=== PATIENT | female | born 1970 | race Caucasian/White ===

== ENCOUNTER 2023-02-11 17:07 | Emergency (ER) | payer OTHER ==
--- NOTE | 2023-02-11 18:30 | XR ---
EXAMINATION TYPE: XR chest 2V DATE OF EXAM: 02/11/2023 COMPARISON: NONE HISTORY: Chest pain. TECHNIQUE: Frontal and lateral views of the chest are obtained. FINDINGS: There is no focal air space opacity, pleural effusion, or pneumothorax seen. The cardiac silhouette size is within normal limits. The osseous structures are intact. IMPRESSION: No acute process.
[2023-02-11 18:49] LABS: Basophils % (A) 0 %; Eosinophils # (A) 0.2 k/uL (0-0.7); Eosinophils % (A) 3 %; HCT 42.5 % (34.0-46.0); HGB 13.9 gm/dL (11.4-16.0); Lymphocytes # (A) 0.9 k/uL (1.0-4.8); Lymphocytes % (A) 12 %; MCHC 32.8 g/dL (31.0-37.0); MCV 91.6 fL (80.0-100.0); Mean Platelet Volume 8.5; Monocytes # (A) 0.4 k/uL (0-1.0); Monocytes % (A) 5 %; Neutrophils # (A) 6.2 k/uL (1.3-7.7); Neutrophils % (A) 79 %; Platelet Count 199 k/uL (150-450); RBC 4.64 m/uL (3.80-5.40); RDW 13.5 % (11.5-15.5); WBC 7.8 k/uL (3.8-10.6)
[2023-02-11 19:06] LABS: ALT 19 U/L (4-34); AST 26 U/L (14-36); African American GFR (CKD) >90 (>60 ml/min/1.73 sqM); Albumin 4.1 g/dL (3.5-5.0); Alkaline Phosphatase 124 U/L (38-126); Anion Gap 12 mmol/L; Blood Urea Nitrogen 17 mg/dL (7-17); Calcium 9.3 mg/dL (8.4-10.2); Carbon Dioxide 22 mmol/L (22-30); Chloride 106 mmol/L (98-107); Glucose 93 mg/dL (74-99); Non-African American GFR(CKD) >90 (>60 ml/min/1.73 sqM); Potassium 4.3 mmol/L (3.5-5.1); Sodium 140 mmol/L (137-145); Total Bilirubin 0.5 mg/dL (0.2-1.3); Total Protein 7.3 g/dL (6.3-8.2)
[2023-02-11] MEDS ORDERED: ACETAMINOPHEN TAB 500 MG TAB PO STA (19:24)
[2023-02-11] MEDS ORDERED: DEXAMETHASONE SOD PHOSPHATE 10 MG/ML 1 ML VIAL IM STA (19:24)
[2023-02-11] MEDS ORDERED: IBUPROFEN 800 MG TAB PO STA (19:24)
--- NOTE | 2023-02-11 19:24 | ED ---
URI HPI - General Chief Complaint: Upper Respiratory Infection Stated Complaint: cough congestion Time Seen by Provider: 02/11/23 18:28 Source: patient, RN notes reviewed, old records reviewed Mode of arrival: ambulatory Limitations: no limitations - History of Present Illness Initial Comments: This is a 53-year-old female to the emergency department for evaluation of cough congestion bodyaches sore throat generalized pain, cough. Patient was recently at a family gathering so unsure of possible exposure. Patient has no significant travel history. Patient complains of also congestion some ear pain as well. No other complaints MD Complaint: fever, cough, sore throat, rhinorrhea, nasal congestion, sinus pain -: days(s) Severity: moderate Severity scale (1-10): 4 Consistency: constant Improves With: nothing Context: sick contacts Associated Symptoms: chills, myalgias, rhinorrhea, nasal congestion, sore throat Treatments Prior to Arrival: none - Related Data Previous Rx's Medication Instructions Recorded Azithromycin [Zithromax] 500 mg PO DAILY #5 tab 02/11/23 Allergies Allergy/AdvReac Type Severity Reaction Status Date / Time methylprednisolone Allergy Unknown Verified 02/11/23 17:17 [From Medrol] Review of Systems ROS Statement: Those systems with pertinent positive or pertinent negative responses have been documented in the HPI. ROS Other: All systems not noted in ROS Statement are negative. Past Medical History Past Medical History: Asthma History of Any Multi-Drug Resistant Organisms: None Reported Past Surgical History: Cholecystectomy, Orthopedic Surgery Past Psychological History: Anxiety Smoking Status: Vaper Past Alcohol Use History: Rare Past Drug Use History: None Reported General Exam Limitations: no limitations General appearance: alert, in no apparent distress Head exam: Present: atraumatic, normocephalic, normal inspection Eye exam: Present: normal appearance, PERRL, EOMI. Absent: scleral icterus, conjunctival injection, periorbital swelling ENT exam: Present: normal exam, mucous membranes moist Neck exam: Present: normal inspection. Absent: tenderness, meningismus, lymphadenopathy Respiratory exam: Present: normal lung sounds bilaterally. Absent: respiratory distress, wheezes, rales, rhonchi, stridor Cardiovascular Exam: Present: regular rate, normal rhythm, normal heart sounds. Absent: systolic murmur, diastolic murmur, rubs, gallop, clicks GI/Abdominal exam: Present: soft, normal bowel sounds. Absent: distended, tenderness, guarding, rebound, rigid Extremities exam: Present: normal inspection, full ROM, normal capillary refill. Absent: tenderness, pedal edema, joint swelling, calf tenderness Back exam: Present: normal inspection Neurological exam: Present: alert, oriented X3, CN II-XII intact Psychiatric exam: Present: normal affect, normal mood Skin exam: Present: warm, dry, intact, normal color. Absent: rash Course Vital Signs 02/11/23 02/11/23 17:14 20:21 Temperature 98.6 F 98.0 F Pulse Rate 85 79 Respiratory 16 18 Rate Blood Pressure 161/97 165/83 O2 Sat by Pulse 98 98 Oximetry - Reevaluation(s) Reevaluation #1: 02/11/23 19:24 Medical records reviewed Reevaluation #2: Since symptoms continue to improve Reevaluation #3: Patient informed results questions answered Reevaluation #4: 02/11/23 19:24 Was pt. sent in by a medical professional or institution (, PA, INTERNATIONAL SPECIALIST, urgent care, hospital, or alf...) When possible be specific @ -no Did you speak to anyone other than the patient for history (EMS, parent, family, police, friend...)? What history was obtained from this source @ -no Did you review nursing and triage notes (agree or disagree)? Why? @ -agree Are old charts reviewed (outside hosp., previous admission, EMS record, old EKG, old radiological studies, urgent care reports/EKG's, alf records)? Report findings @ -yes Differential Diagnosis (chest pain, altered mental status, abdominal pain women, abdominal pain men, vaginal bleeding, weakness, fever, dyspnea, syncope, headache, dizziness, GI bleed, back pain, seizure, CVA, palpatations, mental health, musculoskeletal)? @ -prior EKG interpreted by me (3pts min.). @ -yes X-rays interpreted by me (1pt min.). @ -yes CT interpreted by me (1pt min.). @ -no U/S interpreted by me (1pt. min.). @ -no What testing was considered but not performed or refused? (CT, X-rays, U/S, labs)? Why? @ -none What meds were considered but not given or refused? Why? @ -none Did you discuss the management of the patient with other professionals (professionals i.e. , PA, INTERNATIONAL SPECIALIST, lab, RT, psych nurse, clinical social work aide, living supervisor, teacher, access control officer, outpatient case manager)? Give summary @ -no Was smoking cessation discussed for >3mins.? @ -no Was critical care preformed (if so, how long)? @ -no Were there social determinants of health that impacted care today? How? (Homelessness, low income, unemployed, alcoholism, drug addiction, transportation, low edu. Level, literacy, decrease access to med. care, intermediate, rehab)? @ -none Was there de-escalation of care discussed even if they declined (Discuss DNR or withdrawal of care, Hospice)? DNR status @ -no What co-morbidities impacted this encounter? (DM, HTN, Smoking, COPD, CAD, Cancer, CVA, ARF, Chemo, Hep., AIDS, mental health diagnosis, sleep apnea, morbid obesity)? @ -none Was patient admitted / discharged? Hospital course, mention meds given and route, prescriptions, significant lab abnormalities, going to OR and other pertinent info. @ - 53 female to the emergency department for evaluation of increased cough congestion upper respiratory infection with no acute cause found here in the ER patient feels well can be discharged home Discharge Undiagnosed new problem with uncertain prognosis? @ -no Drug Therapy requiring intensive monitoring for toxicity (Heparin, Nitro, Insulin, Cardizem)? @ -no Were any procedures done? @ -no Diagnosis/symptom? @ -Viral infection Acute, or Chronic, or Acute on Chronic? @ -Acute Uncomplicated (without systemic symptoms) or Complicated (systemic symptoms)? @ -Complicated Side effects of treatment? @ -no Exacerbation, Progression, or Severe Exacerbation? @ -exacerbation Poses a threat to life or bodily function? How? (Chest pain, [place], [place], pneumonia, PE, COPD, DKA, ARF, appy, cholecystitis, CVA, Diverticulitis, Homicidal, Suicidal, threat to staff... and all critical care pts) @ -no Reevaluation #5: Differential Dyspnea: Coronary syndrome, arrhythmia, tamponade, asthma, COPD, pulmonary embolism, pn eumonia, pneumothorax, pulmonary effusion, anaphylaxis, diabetic ketoacidosis, flailed chest, pulmonary contusion, diaphragmatic rupture, anemia, neuromuscular, this is not meant to be an all-inclusive list. Medical Decision Making - Medical Decision Making 53 female to the emergency department for evaluation of increased cough con gestion upper respiratory infection with no acute cause found here in the ER patient feels well can be discharged home - Lab Data Result diagrams: 02/11/23 18:16 02/11/23 18:16 Lab Results 02/11/23 02/11/23 02/11/23 Range/Units 18:16 18:16 18:16 WBC 7.8 (3.8-10.6) k/uL RBC 4.64 (3.80-5.40) m/uL Hgb 13.9 (11.4-16.0) gm/dL Hct 42.5 (34.0-46.0) % MCV 91.6 (80.0-100.0) fL MCH 30.0 (25.0-35.0) pg MCHC 32.8 (31.0-37.0) g/dL RDW 13.5 (11.5-15.5) % Plt Count 199 (150-450) k/uL MPV 8.5 Neutrophils % 79 % Lymphocytes % 12 % Monocytes % 5 % Eosinophils % 3 % Basophils % 0 % Neutrophils # 6.2 (1.3-7.7) k/uL Lymphocytes # 0.9 L (1.0-4.8) k/uL Monocytes # 0.4 (0-1.0) k/uL Eosinophils # 0.2 (0-0.7) k/uL Basophils # 0.0 (0-0.2) k/uL Sodium 140 (137-145) mmol/L Potassium 4.3 (3.5-5.1) mmol/L Chloride 106 (98-107) mmol/L Carbon Dioxide 22 (22-30) mmol/L Anion Gap 12 mmol/L BUN 17 (7-17) mg/dL Creatinine 0.71 (0.52-1.04) mg/dL Est GFR (CKD-EPI)AfAm >90 (>60 ml/min/1.73 sqM) Est GFR (CKD-EPI)NonAf >90 (>60 ml/min/1.73 sqM) Glucose 93 (74-99) mg/dL Calcium 9.3 (8.4-10.2) mg/dL Magnesium 2.0 (1.6-2.3) mg/dL Total Bilirubin 0.5 (0.2-1.3) mg/dL AST 26 (14-36) U/L ALT 19 (4-34) U/L Alkaline Phosphatase 124 (38-126) U/L Troponin I <0.012 (0.000-0.034) ng/mL Total Protein 7.3 (6.3-8.2) g/dL Albumin 4.1 (3.5-5.0) g/dL Influenza Type A (PCR) (Not Detectd) Influenza Type B (PCR) (Not Detectd) RSV (PCR) (Not Detectd) SARS-CoV-2 (PCR) (Not Detectd) 02/11/23 Range/Units 18:16 WBC (3.8-10.6) k/uL RBC (3.80-5.40) m/uL Hgb (11.4-16.0) gm/dL Hct (34.0-46.0) % MCV (80.0-100.0) fL MCH (25.0-35.0) pg MCHC (31.0-37.0) g/dL RDW (11.5-15.5) % Plt Count (150-450) k/uL MPV Neutrophils % % Lymphocytes % % Monocytes % % Eosinophils % % Basophils % % Neutrophils # (1.3-7.7) k/uL Lymphocytes # (1.0-4.8) k/uL Monocytes # (0-1.0) k/uL Eosinophils # (0-0.7) k/uL Basophils # (0-0.2) k/uL Sodium (137-145) mmol/L Potassium (3.5-5.1) mmol/L Chloride (98-107) mmol/L Carbon Dioxide (22-30) mmol/L Anion Gap mmol/L BUN (7-17) mg/dL Creatinine (0.52-1.04) mg/dL Est GFR (CKD-EPI)AfAm (>60 ml/min/1.73 sqM) Est GFR (CKD-EPI)NonAf (>60 ml/min/1.73 sqM) Glucose (74-99) mg/dL Calcium (8.4-10.2) mg/dL Magnesium (1.6-2.3) mg/dL Total Bilirubin (0.2-1.3) mg/dL AST (14-36) U/L ALT (4-34) U/L Alkaline Phosphatase (38-126) U/L Troponin I (0.000-0.034) ng/mL Total Protein (6.3-8.2) g/dL Albumin (3.5-5.0) g/dL Influenza Type A (PCR) Not Detected (Not Detectd) Influenza Type B (PCR) Not Detected (Not Detectd) RSV (PCR) Not Detected (Not Detectd) SARS-CoV-2 (PCR) Not Detected (Not Detectd) - EKG Data -: EKG Interpreted by Me (EKG is sinus 78 CT 148 QRS 94 QTC 391) - Radiology Data Radiology results: report reviewed (Chest x-rays negative for acute disease), image reviewed Disposition Clinical Impression: Acute upper respiratory infection, Viral infection Disposition: HOME SELF-CARE Condition: Good Instructions (If sedation given, give patient instructions): Upper Respiratory Infection (ED) Prescriptions: Azithromycin [Zithromax] 500 mg PO DAILY #5 tab Is patient prescribed a controlled substance at d/c from ED?: No Referrals: Enoch Corral MD [Primary Care Provider] - 1-2 days Time of Disposition: 19:40
[2023-02-11] MEDS ORDERED: AZITHROMYCIN 500 MG TAB PO STA (19:40)
[2023-02-11 20:24] VITALS: BP 165/83; PULSE 79; RESP 18; TEMP 98
== END 2023-02-11 20:22 | disposition home or self-care (01) ==
LOC: EC 17:07
DX: J06.9 Acute upper respiratory infection, unspecified (principal); J45.909 Unspecified asthma, uncomplicated; F17.290 Nicotine dependence, other tobacco product, uncomplicated; Z88.8 Allergy status to other drugs, medicaments and biological substances; Z90.49 Acquired absence of other specified parts of digestive tract; Z20.822 Contact with and (suspected) exposure to COVID-19
CPT/HCPCS: 36415; 93005; 80053; 83735; 84484; 85025; 87636; 71046; 99284; 96372; J1100

== ENCOUNTER 2023-07-14 19:43 | Outpatient (CLI) | payer OTHER ==
--- NOTE | 2023-07-15 11:42 | P.PCN ---
Description of Procedure: POLYSOMNOGRAPHY REPORT PROCEDURE(S)/DATE(S): Polysomnography 07/14/2023 CLINICAL: Patient has been seen in the sleep center for evaluation of obstructive sleep apnea-hypopnea syndrome. Please see my consultation. Sleep study has been done for evaluation of patient breathing during the sleep. PROCEDURE: The standard montage for clinical polysomnography included the electroencephalogram, the electrooculogram, the mentalis surface electromyography and Lead II cardiography. The respiratory battery consisted of measurements of nasal/buccal air flow, pressure transducer measurements from nose, thoracic and/or abdominal effort and intercostal surface electromyography. Video monitoring has been done to check for any parasomnia events. Nocturnal oxyhemoglobin saturations were obtained by finger oximetry. Step-lauren titration with positive airway pressure was utilized to control the respiratory events, if necessary. RESULTS: During the diagnostic sleep study sleep efficiency was extremely short 45.7%. Latency to sleep onset was significantly prolonged to 109.0 min. Sleep architecture showed stage NI was significantly increased to 18.5%, Delta sleep was slightly short 4.1%, REM sleep was practically normal 19.3%. Respiratory channel showed 4 obstructive apneas, 0 mixed apneas, 0 central apneas, 65 hypopneas with lowest oxygen level 76%. Total apnea hypopnea index was 22.9. Heart rate was in the range between 79 and 93, average 88. EMG showed 67.6 periodic limb movements per hour with 1.7 micro-arousals per hour. IMPRESSIONS: 1. Moderate obstructive sleep apnea hypopnea syndrome. 2. Severe periodic limb movements have been documented. Please see other impressions from consultation PLAN: 1. The patient will have PAP titration for correction of respiratory abnormalities during the sleep. 2. Losing weight program. 3. Sleep hygiene with regular time in bed for at least 7-1/2 hours. 4. No driving if feeling sleepiness. 5. Please check iron profile including ferritin level. Low level of iron may increase the risk for periodic limb movements. Thank you very much for allowing me to participate in the management of your patient. Sincerely, Carson Cunha MD, PhD, FAASM. Diplomat of [place] [employer], Sleep Medicine Board by [place] [employer] [facility] [place]
== END 2023-07-15 05:45 | disposition home or self-care (01) ==
LOC: 3 N SLEEP 19:43
PROVIDERS: ATTEND Internal Medicine
DX: G47.33 Obstructive sleep apnea (adult) (pediatric) (principal); G47.61 Periodic limb movement disorder; Z88.1 Allergy status to other antibiotic agents
CPT/HCPCS: 95810

== ENCOUNTER → 2024-02-23 | Outpatient (CLI) | payer OTHER | END | disposition home or self-care (01) | LOC: LABWHC1 13:30 | PROVIDERS: ATTEND Orthopaedic Surgery | DX: Z01.812 Encounter for preprocedural laboratory examination (principal); M17.11 Unilateral primary osteoarthritis, right knee | CPT/HCPCS: 87070 ==

== ENCOUNTER 2024-02-26 06:07 | Observation (INO) | payer OTHER ==
[2024-02-23 09:04] VITALS: BMI 47.0
--- NOTE | 2024-02-25 08:14 | P.HPOR ---
History of Present Illness H&P Date: 02/25/24 Chief Complaint: Right knee pain The patient is a 54-year-old female who presents with progressive right knee pain for the past 3 years worsening over the past 6 months. She notes diffuse pain with any weightbearing activities. She notes the knee feels unstable. She is having nighttime symptoms. She's tried previous medications along with injections without much relief. She had an arthroscopy 3 years ago. She notes daily pain that limits her normal function and activities. Review of Systems Per HPI Past Medical History Past Medical History: Asthma, GERD/Reflux, Hypertension, Osteoarthritis (OA), Skin Disorder, Thyroid Disorder Additional Past Medical History / Comment(s): Varicose veins. Slight Sleep Apnea, no device use. Eczema, has spot on back of head with dry skin. History of Any Multi-Drug Resistant Organisms: None Reported Past Surgical History: Bladder Surgery, Cholecystectomy, Hysterectomy, Orthopedic Surgery Additional Past Surgical History / Comment(s): Neck surgery with metal cage, bladder polyps removed, right knee surgery. Past Anesthesia/Blood Transfusion Reactions: No Reported Reaction Smoking Status: Former smoker, Vaper - Past Family History Father Family Medical History: Cancer Additional Family Medical History / Comment(s): Skin cancer. Brother(s) Family Medical History: Cancer Additional Family Medical History / Comment(s): Throat cancer. Mother Family Medical History: Deep Vein Thrombosis (DVT) Medications and Allergies Home Medications Medication Instructions Recorded Confirmed Type Albuterol Sulfate [Ventolin HFA] 1 puff INHALATION Q4H PRN 02/23/24 02/23/24 History HYDROcodone/APAP 5-325MG [[place] 1 tab PO BID PRN 02/23/24 02/23/24 History 5-325] Ibuprofen 800 mg PO Q8H PRN 02/23/24 02/23/24 History Levothyroxine Sodium [Synthroid] 50 mcg PO QAM 02/23/24 02/23/24 History Metoprolol Succinate [Toprol XL] 50 mg PO QAM 02/23/24 02/23/24 History Sertraline [Zoloft] 100 mg PO QAM 02/23/24 02/23/24 History Allergies Allergy/AdvReac Type Severity Reaction Status Date / Time methylprednisolone Allergy Unknown Verified 02/23/24 08:54 [From Medrol] Physical Examination - Knee right Appearance: effusion Effusion grade: grade 2 Varus alignment in stance: 10 degrees Tenderness with palpation: anterior, medial Pain: throughout ROM Gait: limping ROM: extension: -15 degrees ROM: flexion: 75 degrees Crepitus with motion: Yes Strength: extension: 5/5 Strength: flexion: 5/5 Meniscal tests: medial meniscal tests: positive, medial joint line pain: positive Results The patient is a well-developed well-nourished female approximately 5 foot 7, 3 10 pounds of endomorphic habitus. HEENT exam is nonfocal, neck is supple. She has painless passive motion of the right hip. Straight leg raise is negative. She is tender about the medial joint line of the right knee. Collaterals are stable, Alida was negative, Adrien's elicits medial pain. Her distal neurovascular appears intact in the right lower extremity. - Diagnostic results Knee x-ray: image reviewed (X-rays of the right knee obtained the office show severe medial compartment osteoarthrosis with [id number] changes and subchondral sclerosis. Genu varum deformity is noted.) Assessment and Plan Assessment: Right knee severe tricompartmental osteoarthrosis Obesity Plan: I talked to the patient at length regarding her condition and treatment options. She's been working on weight loss diligently. She is quite symptomatic having pain and mechanical symptoms related to her right knee osteoarthrosis despite conservative measures. After a thorough discussion she opts to proceed with surgery. We'll plan to proceed with right total knee arthroplasty. Risks and benefits were discussed at length in layman's terms. We will institute DVT prophylaxis postoperatively.
[~2024-02-26 06:07] MED LIST: TRANEXAMIC 1,000 MG/100ML-NACL 1,000 MG in SALINE 1 100ML.BAG IVPB PRN
[2024-02-26] MEDS: ACETAMINOPHEN TAB 500 MG TAB PO PRN (06:57)
[2024-02-26] MEDS: MELOXICAM 7.5 MG TAB PO PRN (06:57)
[2024-02-26] MEDS: ONDANSETRON 4 MG/2 ML VIAL IVP ONE (06:58)
[2024-02-26] MEDS: LACTATED RINGERS 1,000 ML IV SCH (06:58)
[2024-02-26] MEDS: DEXAMETHASONE SOD PHOSPHATE 4 MG/ML 1 ML VIAL IVP STA (07:00)
[2024-02-26] MEDS: MIDAZOLAM 2 MG/2 ML VIAL IV PRN (07:16)
--- NOTE | 2024-02-26 07:35 | P.ANPRN ---
Procedure Note - Anesthesia - Nerve Block Performed Right Adductor Canal Infusion Time Out Performed: Yes (0715) Date of Procedure: 02/26/24 Procedure Start Time: :15 Procedure Stop Time: :28 Location of Patient: PreOp Indication: Acute Post-Operative Pain, Requested by Surgeon Sedation Type: Sedate with meaningful contact maintained Preparation: Sterile Prep, Sterile Dressing Position: Supine Catheter: Indwelling Needle Types: Pajunk Needle Gauge: 18 Ultrasound used to visualize needle placement: Yes Ultrasound used to observe medication spread: Yes Injectate: 0.5% Ropivacaine (see comment for volume) (20 ml) Blood Aspirated: No Pain Paresthesia on Injection Noted: No Resistance on Injection: Normal Image Stored and Saved: Yes Events: Uneventful and Well Tolerated
--- NOTE | 2024-02-26 07:37 | P.ANPRN ---
Procedure Note - Anesthesia - Nerve Block Performed Right iPack Single Time Out Performed: Yes (0715) Date of Procedure: 02/26/24 Procedure Start Time: :15 Procedure Stop Time: :28 Location of Patient: PreOp Indication: Acute Post-Operative Pain, Requested by Surgeon Sedation Type: Sedate with meaningful contact maintained Preparation: Sterile Prep, Sterile Dressing Position: Supine Catheter: None Needle Types: Pajunk Needle Gauge: 21 Ultrasound used to visualize needle placement: Yes Ultrasound used to observe medication spread: Yes Injectate: 0.5% Ropivacaine (see comment for volume) (10 ml of PF normal saline mixed with 10 ml of 0.5% ropivacaine ( 20ml )) Blood Aspirated: No Pain Paresthesia on Injection Noted: No Resistance on Injection: Normal Image Stored and Saved: Yes Events: Uneventful and Well Tolerated
[2024-02-26] MEDS ORDERED: LIDOCAINE 1% INJ 10MG/ML (20 ML MDV) ONE (07:38)
[2024-02-26] MEDS ORDERED: ROPIVACAINE 5 MG/ML 30 ML VIAL ONE (07:38)
[2024-02-26] MEDS ORDERED: SODIUM CHLORIDE 0.9% (PF) 10 ML VIAL ONE (07:38)
[2024-02-26] MEDS ORDERED: PROPOFOL 10 MG/ML 20 ML VIAL IV ONE (07:38)
[2024-02-26] MEDS ORDERED: TRANEXAMIC 1,000 MG/100ML-NACL PREMIX BAG ONE (07:38)
[2024-02-26] MEDS ORDERED: MIDAZOLAM 2 MG/2 ML VIAL ONE (07:38)
[2024-02-26] MEDS ORDERED: PHENYLEPHRINE 10 MG/ML VIAL ONE (07:38)
[2024-02-26] MEDS ORDERED: HYDROmorphone (PF) 1 MG/ML ONE (07:38)
[2024-02-26] MEDS ORDERED: fentaNYL (PF) 50 MCG/ML 2 ML AMP ONE (07:38)
[2024-02-26] MEDS: IV FLUID CONTINUATION 1,000 ML IV ONE (07:39)
[2024-02-26] MEDS: ceFAZolin 3 GM in SODIUM CHLORIDE 0.9% 100 ML IVPB PRN (07:41)
[2024-02-26] MEDS: ceFAZolin 1,000 MG in SODIUM CHLORIDE 0.9% 1,000 ML IRRIGATION ONE (08:05)
[2024-02-26] MEDS: LACTATED RINGERS 1,000 ML IV ONE (08:57)
[2024-02-26] MEDS ORDERED: MAGNESIUM HYDROXIDE 2,400 MG/30 ML CUP PO PRN (09:15)
[2024-02-26] MEDS ORDERED: NALOXONE 0.4 MG/ML 1 ML VIAL IV PRN (09:15)
[2024-02-26] MEDS ORDERED: HYDROmorphone 1 MG/ML 1 ML SYRINGE IVP PRN (09:15)
[2024-02-26] MEDS ORDERED: HYDROcodone/APAP 5-325MG 1 EACH TAB PO PRN ×2 (09:15→16:11)
--- NOTE | 2024-02-26 09:46 | P.OP ---
Date of Procedure: 02/26/24 Preoperative Diagnosis: Right knee severe tricompartmental osteoarthrosis Postoperative Diagnosis: Same Procedure(s) Performed: Right total knee arthroplastycementedposterior stabilized Implants: DePuy attune size 6 narrow cemented femoral component, size 5 cemented tibial component with a 14 x 50 mm tibial stem extension, 9 mm articular surface, 35 mm cemented patellar component. This is a posterior stabilized implant. Anesthesia: regional, spinal Surgeon: Wilfred Kang Facilities Operations Technician #1: Castro Stanford Estimated Blood Loss (ml): 100 Pathology: none sent Condition: stable Disposition: PACU Indications for Procedure: The patient is a 54-year-old female who presents with progressive right knee pain secondary to osteoarthrosis despite conservative measures. She is also working diligently on weight loss. A discussion of the risks and benefits of operative intervention versus continued conservative measures was made with the patient. She opted to proceed with surgery. Operative risks include infection, neurovascular injury, development of blood clots, possible instability, fracture, possible component loosening/failure and possible need for subsequent procedures was discussed. Informed consent was obtained. Operative Findings: As below Description of Procedure: The patient was brought to the operating room, and after induction of spinal anesthesia the right lower extremity was prepped and draped in a normal fashion. The tourniquet was inflated to 270 mm marker. A longitudinal incision extending 3 finger breaths above the superior pole of patella extending to the medial aspect the tibial tubercle was then made. The skin and subcutaneous tissues were divided sharply. Electrocautery was used for hemostasis. A medial parapatellar arthrotomy was performed. The medial soft tissues to include the superficial and deep portions of the medial collateral ligament were elevated subperiosteally. The patella was everted. A portion of the retropatellar fat pad was excised sharply. The anterior cruciate ligament was sacrificed. Blunt retractors were placed. A starting hole was made in the distal femur 1 cm anterior to the posterior cruciate ligament origin. An intramedullary femoral guide was then inserted planning on 5 valgus distal cut with 9 mm distal resection. The cutting block was pinned in place. The distal cut was then made. The posterior referencing sizing guide was utilized. I felt size 6 narrow was most appropriate. 3 of external rotation was built into the system and verified off the trans-epicondylar axis and the posterior condyles. The cutting block was pinned in place. The anterior, posterior, and chamfer cuts then made. Bone fragments were removed. The intercondylar guide was placed and the notch cut was made with a sagittal saw. The bone block was removed in one fragment. The trial component was then placed. There is good anterior to posterior and medial to lateral fit. The distal peg holes were drilled. The trial component was removed. Attention was then paid towards preparing the proximal tibia. An extra medullary guide was utilized in line with the tibial shaft and second metatarsal distally. I planned on 2 mm resection from the medial compartment. The cutting block was pinned in place. The proximal tibial cut was then made. The bone was removed in one fragment. The remnants of the medial and lateral menisci were excised at the capsular junction with electrocautery. The tibia sized most appropriately at size 5. The trial femoral and tibial components were placed along with a 9 mm articular surface. I was able to obtain full flexion and extension with internal and external rotation. After several flexion and extension cycles, the tibial rotation was marked with electrocautery line with the medial one third of the tibial tubercle. Attention was then paid towards preparing the patella. A patella reamer was utilized taking stem to 14 mm of bone stock. A good flush cut was made. The patella sized most appropriately 35 mm. The peg holes were drilled. The trial components placed. I had good patellofemoral tracking with no hands technique. The trial components were then removed. The tibia was prepared in the appropriate rotation with appropriate drill and keel punch planning on a 14 x 50 mm stem extension. The posterior osteophytes were removed with a curved osteotome. The flexion and extension gaps were checked and felt to be symmetric at 9 mm. A trial components were then removed. The bony surfaces were prepared with pulsatile lavage and dried. The tibial component was then cemented place was fully seated. Excess cement was removed. The femoral component cemented place and was fully seated. Excess cement was removed. The trial 9 mm art icular surface was placed and the knee was put in full extension. The patella component was cemented place. After the cement had sufficiently hardened, the knee was again taken through a range of motion. Again I was able to obtain full flexion and extension with varus and valgus stress. The trial 9 mm articular surface was removed and the final one inserted. This was fully seated. Care was taken to avoid any soft tissue interposition. Pulsatile lavage was again utilized. The medial parapatellar arthrotomy was closed with #2 Ethibond suture. The tourniquet was deflated with approximately 60 minutes total tourniquet time. Final hemostasis was obtained with the cautery. There was minimal bleeding therefore a deep drain was not placed. The subcutaneous tissues were reapproximated with interrupted 2-0 Vicryl sutures. The skin was reapproximated with 3-0 subcuticular strata fix suture. Skin tape and adhesive was applied. A sterile dressing was applied. The patient was awoken from sedation and transferred to recovery room in good condition. Blood loss was estimated at 100 mL. No complications were incurred. Sponge and needle counts were correct at the end of the case. Castro BARROS assisted during the major components of this case to include exposure, bone resection, implantation, and closure.
[2024-02-26] MEDS: ROPIVACAINE 1,100 MG, SODIUM CHLORIDE 0.9% 500 ML 330 ML, EMPTY PAIN BALL 1 EACH MISCELLANE PRN (10:09)
[2024-02-26] MEDS: ONDANSETRON 4 MG/2 ML VIAL IVP PRN (10:12)
--- NOTE | 2024-02-26 10:21 | XR ---
EXAMINATION TYPE: XR knee limited RT DATE OF EXAM: 02/26/2024 10:12 AM COMPARISON: None. CLINICAL INDICATION: Female, 54 years old with history of Evaluation for Postop abnormality and align ment, TECHNIQUE: XR knee limited RT view(s) obtained. FINDINGS: Tibial and femoral components of the place. No acute fracture or dislocation evident. Postsurgical so ft tissue changes evident. IMPRESSION: 1. No acute fracture post knee replacement [facility], , 02/26/2024 10:18 AM
[2024-02-26] MEDS: HYDROmorphone 0.5 MG/0.5 ML SYRINGE IVP PRN ×2 (11:02→15:29)
[2024-02-26] MEDS: SCOPOLAMINE 1 MG/72 HR PATCH TRANSDERM ONE (13:03)
[2024-02-26] MEDS: HYDROcodone/APAP 7.5-325MG 1 EACH TAB PO PRN (13:13)
[2024-02-26] MEDS: hydrOXYzine pamoate 25 MG CAP PO PRN (13:15)
[2024-02-26] MEDS: ceFAZolin 3 GM in SODIUM CHLORIDE 0.9% 100 ML IVPB SCH (15:30)
[2024-02-26] MEDS ORDERED: HYDROmorphone 2 MG/ML 1 ML SYRINGE IVP PRN (15:38)
[2024-02-26] MEDS: MORPHINE SULFATE 2 MG/ML SYRINGE IVP PRN (16:10)
[2024-02-26] MEDS: IPRATROPIUM-ALBUTEROL 3 ML NEB INHALATION SCH (20:27)
[2024-02-26] MEDS: SENNOSIDES-DOCUSATE SODIUM 1 EACH TAB PO SCH (20:48)
[2024-02-27] MEDS: oxyCODONE-APAP 10-325MG 1 EACH TAB PO PRN (00:05)
[2024-02-27] MEDS: ZOLPIDEM 5 MG TAB PO PRN (00:05)
[2024-02-27] MEDS: LEVOTHYROXINE 50 MCG TAB PO SCH (05:44)
[2024-02-27] MEDS: METOPROLOL SUCCINATE (ER) 50 MG TAB.ER.24H PO SCH (09:11)
[2024-02-27] MEDS: SERTRALINE 100 MG TAB PO SCH (09:11)
[2024-02-27] MEDS: RIVAROXABAN 10 MG TAB PO SCH (09:11)
--- NOTE | 2024-02-27 09:19 | P.PN ---
Subjective Progress Note Date: 02/27/24 Principal diagnosis: Right knee osteoarthritis Patient was seen at bedside this morning lying in the semicomposition with dressing present over right knee. Patient says she is in a lot of pain this morning. Patient states she has been up a couple times to the bathroom under her own power using a walker and she does have a decent mount of pain when bearing weight to the right lower extremity. Patient says she does need a walker for home. Patient says when she does go home she does have family to help her out. Patient says she is looking forward to working with therapy later this morning. She says she has not had a bowel movement yet, however, patient says she has been passing gas. Patient hoping to stay 1 more night in the hospital. Patient denies any other issues at this time. Objective - Vital Signs Vital signs: Vital Signs Temp 98.2 F 02/27/24 02:00 Pulse 82 02/27/24 08:49 Resp 12 02/27/24 02:00 BP 143/85 02/27/24 02:00 Pulse Ox 96 02/27/24 02:00 FiO2 Intake & Output 02/26/24 02/27/24 02/27/24 18:59 06:59 18:59 Intake Total 1301 Output Total 100 Balance 1201 Weight 148.9 kg Intake: IV 1301 Output: Estimated Blood Loss 100 Other: Voiding Method Toilet # Voids 1 - Exam Right knee: Incision is clean, dry, and intact. The exofin fusion tape is in good condi tion. There is minimal soft tissue swelling and ecchymosis surrounding the medial and lateral aspects of the incision. Calf is soft, no tenderness with palpation. Plantar flexion, dorsiflexion, EHL, FHL are intact. Sensory exam to light touch throughout the extremity is intact, dorsal pedis pulses 2+. Assessment and Plan Assessment: 1. Right knee osteoarthritis -Postop day #1 status post right total knee arthroplasty Plan: 1. Right knee osteoarthritis -right total knee arthroplasty was performed yesterday, 02/26/2024. Patient stable bedside this morning. We have added [place] 10/325 mg every 6 hours for pain. Prescription for walker was signed. Case management working on this. Weightbearing as tolerated with walker and assistance as needed. We will plan to keep patient 1 more night for additional therapy and pain control. Plan for discharge home tomorrow versus Thursday. 2. Appreciate medical management 3. Pain management -[place]; Vistaril 4. DVT prophylaxis -Xarelto 5. GI prophylaxis -senna 6. PT/OT -weightbearing as tolerated walker 7. Encourage incentive spirometer use 8. Discharge planning - plan for discharge home tomorrow versus Thursday Time with Patient: Less than 30
--- NOTE | 2024-02-27 09:35 | P.PN ---
Progress Note - Text Progress Note Date: 02/27/24 patient was seen and evaluated at bedside. Status post postoperative day 1 for right side total knee arthroplasty patient had adductor canal catheter for postop pain control. Patient rated pain at rest 4 out of 10 in severity. Patient describes pain is aching, throbbing type on the sides of the knee and back of the knee. Patient started walking with support. With activity patient pain levels are 7-8 out of 10 in severity. With the help of oral pain medications pain levels are tolerable. Patient denied any weakness/ numbness in lower extremities. patient denied any fever, pain over the catheter site. Physical exam: Patient vital signs stable Patient is alert awake oriented 3 responding to all questions appropriately Examination of the catheter site showed dressing intact, no leaking fluid around the catheter, no redness, no tenderness over the catheter insertion area. plan: status post postoperative day 1 for right side total knee arthroplasty with adductor canal catheter for pain control. Patient was discussed to continue the medication at the rate of 8 mL per hour- increasing to 12 mL/h overnight. Continue until the pump is completely empty and instructed the patient how to discontinue the catheter.
[2024-02-27 10:22] LABS: Basophils # (A) 0.02 X 10*3/uL (0.00-0.10); Basophils % (A) 0.2 %; Eosinophils # (A) 0.03 X 10*3/uL (0.04-0.35); Eosinophils % (A) 0.3 %; HCT 29.1 % (37.2-46.3); HGB 9.1 g/dL (12.0-15.0); Lymphocytes # (A) 1.03 X 10*3/uL (0.90-5.00); Lymphocytes % (A) 11.3 %; MCH 28.8 pg (27.0-32.0); MCHC 31.3 g/dL (32.0-37.0); MCV 92.1 FL (80.0-97.0); Mean Platelet Volume 11.4 FL (9.5-12.2); Monocytes # (A) 0.71 X 10*3/uL (0.20-1.00); Monocytes % (A) 7.8 %; NRBC Per 100 WBC 0 X 10*3/uL (0.00-0.01); Neutrophils % (A) 80.1 %; Platelet Count 184 X 10*3/uL (140-440); RBC 3.16 X 10*6/uL (4.10-5.20); RDW 14.6 % (11.5-14.5); WBC 9.12 X 10*3/uL (4.50-10.00)
--- NOTE | 2024-02-27 11:06 | CONS ---
CONSULTATION HISTORY OF PRESENT ILLNESS: The patient is status post knee surgery for medical management consult. Pain she says 20/10. Her pain is uncontrolled. We started her on multiple pain medicines including [place] did not work, Motrin worked a little, Dilaudid did not work. We increased over to oxycodone last night, gave her sleeping pill, sleeping. Her pain is still low 8 to 9/10 and she has severe pain just ambulating. She is going to stay another day to try to wean off pain medications as tolerated. Continue her breathing treatments. She has history of severe asthma, hypothyroid, hypertension, depression. Continue current treatments. Pain control is please see orders that were given in the last 24 hours, consultation with Dr. Enoch Corral. Prognosis guarded. MEDICATIONS: Reviewed. FAMILY HISTORY: Reviewed. SOCIAL HISTORY: Reviewed. REVIEW OF SYSTEMS: Otherwise negative x12. PHYSICAL EXAMINATION: CARDIOVASCULAR: S1, S2. LUNGS: Transmitted upper sounds. GI: Soft. HEMATOLOGIC: Negative Hom[place]. EXTREMITIES: She is unable to move her right knee. VITAL SIGNS: O2 is 96% on room air, blood pressure 143/85, temp 98.2, pulse is 96 to 100, respiratory rate 12 to 18. Continue current treatment. Prognosis guarded. MMODL / IJN: [id number] /
[2024-02-27] MEDS: hydrOXYzine pamoate 25 MG CAP PO SCH (12:01)
[2024-02-27] MEDS: HYDROcodone/APAP 10-325MG 1 EACH TAB PO PRN (13:28)
[2024-02-28] MEDS ORDERED: HYDROcodone/APAP 10-325MG 1 EACH TAB PO PRN (11:48)
--- NOTE | 2024-02-28 12:04 | P.PN ---
Subjective Progress Note Date: 02/28/24 Principal diagnosis: Right knee osteoarthritis Patient was seen at bedside this morning lying in the semirecumbent position with dressing present over right knee. Patient says she is in a lot of pain this morning. She says she did get up with therapy yesterday and took a couple steps into the chair. She says the pain is about the same as it was yesterday. She says she is hoping to talk to case management about the option of going to rehab upon discharge from the hospital. Patient says she does have 12 steps into her home and she thinks this may be difficult for her to do at this time. Patient states she has been up a couple times to the bathroom under her own power using a walker and she does have a decent mount of pain when bearing weight to the right lower extremity. Patient says she is looking forward to working with therapy later this morning. She says she has not had a bowel movement yet, however, patient says she has been passing gas. Patient denies any other issues at this time. Objective - Vital Signs Vital signs: Vital Signs Temp 98.8 F 02/28/24 07:28 Pulse 72 02/28/24 09:02 Resp 20 02/28/24 07:28 BP 135/75 02/28/24 07:28 Pulse Ox 94 L 02/28/24 07:28 FiO2 Intake & Output 02/27/24 02/28/24 02/28/24 18:59 06:59 18:59 Other: Voiding Method Toilet # Voids 3 4 1 - Exam Right knee: Incision is clean, dry, and intact. The exofin fusion tape is in good condition. There is minimal soft tissue swelling and ecchymosis surrounding the medial and lateral aspects of the incision. Calf is soft, no tenderness with palpation. Plantar flexion, dorsiflexion, EHL, FHL are intact. Sensory exam to light touch throughout the extremity is intact, dorsal pedis pulses 2+. - Labs CBC & Chem 7: 02/27/24 04:05 Assessment and Plan Assessment: 1. Right knee osteoarthritis -Postop day #2 status post right total knee arthroplasty Plan: 1. Right knee osteoarthritis -right total knee arthroplasty was performed 02/26/2024. Patient stable bedside this morning. Due to continued pain difficulty with ambulation pain medications have been adjusted. We have added Percocet 7.5mg/325 1-q6h for pain scalle 7-10. Patient says she would like to discuss possibility of going to rehab upon discharge from the hospital due to continued pain and difficulties with ambulation. case management not available in the hospital today. Weightbearing as tolerated with walker and assistance as needed. We will plan to keep patient 1 more night for additional therapy and pain control. Plan for discharge home with health services versus rehab within the next couple days. 2. Appreciate medical management 3. Pain management -[place]; percocet; Vistaril 4. DVT prophylaxis -Xarelto 5. GI prophylaxis -senna 6. PT/OT -weightbearing as tolerated walker 7. Encourage incentive spirometer use 8. Discharge planning - Plan for discharge home with health services versus rehab within the next couple days. Time with Patient: Less than 30
--- NOTE | 2024-02-28 13:45 | PN ---
PROGRESS NOTE SUBJECTIVE: A 54-year-old white female, status post knee surgery. She was in severe pain. We ordered her on Percocet. She is hopefully up and ambulating and hopefully discharge home soon. OBJECTIVE: CARDIOVASCULAR: S1, S2. LUNGS: Clear. GI: Soft. ENDOCRINE: Morbid obesity. She is status post knee surgery day 2. Pain medicine control will be done. Possibly discharge home once her pain stabilizes, but clinically and medically, she appears stable. She is 94% on room air. Blood pressure is 130s over 70s, temperature 98.8, pulse 97, respiratory rate 20. MMODL / IJN: [id number] /
[2024-02-28] MEDS: oxyCODONE-APAP 7.5-325MG 1 EACH TAB PO PRN (16:33)
[2024-02-29 08:16] VITALS: RESP 18
[2024-02-29 08:33] LABS: Basophils # (A) 0.06 X 10*3/uL (0.00-0.10); Basophils % (A) 0.6 %; Eosinophils # (A) 0.16 X 10*3/uL (0.04-0.35); Eosinophils % (A) 1.7 %; HCT 26.3 % (37.2-46.3); HGB 8.3 g/dL (12.0-15.0); Lymphocytes % (A) 11.5 %; MCH 28.7 pg (27.0-32.0); MCHC 31.6 g/dL (32.0-37.0); Mean Platelet Volume 11.8 FL (9.5-12.2); Monocytes # (A) 0.66 X 10*3/uL (0.20-1.00); Monocytes % (A) 6.9 %; NRBC Per 100 WBC 0 X 10*3/uL (0.00-0.01); Neutrophils # (A) 7.51 X 10*3/uL (1.80-7.70); Neutrophils % (A) 78.9 %; Platelet Count 161 X 10*3/uL (140-440); RBC 2.89 X 10*6/uL (4.10-5.20); RDW 14.4 % (11.5-14.5); WBC 9.53 X 10*3/uL (4.50-10.00)
--- NOTE | 2024-02-29 11:11 | P.PN ---
Subjective Progress Note Date: 02/29/24 Principal diagnosis: Right knee osteoarthritis Patient was seen at bedside this morning sitting up in chair with dressing present over right knee. Patient says her pain is a little bit better today. She says she has been trying to perform exercises every hour. She says she did get up with therapy yesterday and took a couple steps into the chair. Patient says she did discuss different rehab options with case folder this morning. Patient says she does have 12 steps into her home and she thinks this may be difficult for her to do at this time. Patient states she has been up a couple times to the bathroom under her own power using a walker and she does have a decent amount of pain when bearing weight to the right lower extremity. Patient says she is looking forward to working with therapy later this morning. She says she has not had a bowel movement yet, however, patient says she has been passing gas. Patient denies any other issues at this time. Objective - Vital Signs Vital signs: Vital Signs Temp 97.8 F 02/29/24 08:00 Pulse 88 02/29/24 09:09 Resp 18 02/29/24 09:07 BP 118/79 02/29/24 08:00 Pulse Ox 90 L 02/29/24 08:00 FiO2 Intake & Output 02/28/24 02/29/24 02/29/24 18:59 06:59 18:59 Other: Voiding Method Toilet Toilet # Voids 1 2 - Exam Right knee: Incision is clean, dry, and intact. The exofin fusion tape is in good condition. There is minimal soft tissue swelling and ecchymosis surrounding the medial and lateral aspects of the incision. Calf is soft, no tenderness with palpation. Plantar flexion, dorsiflexion, EHL, FHL are intact. Sensory exam to light touch throughout the extremity is intact, dorsal pedis pulses 2+. - Labs CBC & Chem 7: 02/29/24 03:11 Labs: Abnormal Lab Results - Last 24 Hours (Table) 02/29/24 Range/Units 03:11 RBC 2.89 L (4.10-5.20) X 10*6/uL Hgb 8.3 L (12.0-15.0) g/dL Hct 26.3 L (37.2-46.3) % MCHC 31.6 L (32.0-37.0) g/dL Assessment and Plan Assessment: 1. Right knee osteoarthritis -Postop day #3 status post right total knee arthroplasty Plan: 1. Right knee osteoarthritis -right total knee arthroplasty was performed 02/26/2024. Patient stable bedside this morning. Case management working on rehab placement Weightbearing as tolerated with walker and assistance as needed. Continue with oral pain medication. Continue with PT/OT daily. Perform exercises every hour while resting in bed and sitting in chair. Plan for discharge to rehab once auth is obtained 2. Appreciate medical management 3. Pain management -[place]; percocet; Vistaril 4. DVT prophylaxis -Xarelto 5. GI prophylaxis -senna 6. PT/OT -weightbearing as tolerated walker 7. Encourage incentive spirometer use 8. Discharge planning - Plan for discharge to rehab once auth is obtained Time with Patient: Less than 30
[2024-02-29 14:33] VITALS: BP 102/67; PULSE 92; TEMP 97.1
--- NOTE | 2024-02-29 15:36 | P.DS ---
Providers Date of admission: 02/29/24 08:46 Expected date of discharge: 02/29/24 Attending physician: Wilfred Kang Consults: 02/26/24 09:15 Consult Physician Routine Consulting Provider: Enoch Corral Reason/Comments: medical management status post right total knee arthroplasty Do you want consulting provider notified?: Yes Primary care physician: Enoch Corral Hospital Course: Date of admission: 02/26/2024 Date of discharge: 02/29/2024 Admission diagnosis: Status post right total knee arthroplasty Discharge diagnosis: Same Attending physician: Dr. Kang Surgical procedures: Right total knee arthroplasty Brief history: Patient is a 54-year-old female with a history of progressive primary right knee osteoarthritis. At this point patient has failed conserv ative treatment measures and has opted to proceed with a elective right total knee arthroplasty. Hospital course: Details of patient's surgery can be found in operative report. Patient tolerated the procedure well and was subsequently transported to orthopedic floor. Patient's orthopeidc and medical care was provided daily. Patient had daily laboratory tests performed for evaluation of overall blood counts. Patient had daily physical therapy to include strengthening range of motion as well as education with walker ambulation. Patient was treated with Xarelto for their postoperative DVT prophylaxis during their inpatient stay. Patient was noted to have a relatively uneventful postoperative course. Patient reported satisfactory pain control with oral pain medications by postoperative d ay 3. Patient showed satisfactory progress with physical therapy. Patient moved steadily through the program and had no difficulty meeting the goals by postoperative day 3. Given patient's otherwise satisfactory course and having met physical therapy goals, plan is to discharge patient subacute rehab on postoperative day 3. Discharge condition/disposition: Patient will be discharged subacute rehab in stable condition. Discharge medications: Instructions are given on resumption of patient's normal daily medications per primary care recommendation, in addition patient will be prescribed Percocet 7.5 mg / 325 mg, senna S, MiraLAX 17 g, Xarelto 10 mg. Discharge instructions: 1. Wound care and infection precautions, keep incision dry and covered while showering, no lotions, creams, moisturizers. No soaking, tubs, pools, hottubs. Do not scrub over the incision. 2. Weight-bear as tolerated with walker / cane until follow-up. 3. Ice and elevate when necessary. Do not exceed 20 minutes per hour with ice pack. 4. Utilize compression sleeve until seen at first follow up appointment. 5. Visiting nursing care. 6. Home physical therapy including home CPM. 7. Pain meds and anticoagulants per prescription. 8. Pain medication has potential to cause constipation. Increase oral fluid and fiber intake. Contact primary care provider if you have not had a bowel movement within 48 hours after discharge 9. No anti-inflammatory medication until discussed at first post operative visit, this including Motrin, Aleve, Mobic, Diclofenac. 10. Follow up in office at 2 weeks postop with Dieter Tan PA-C/Castro Brennan 11. Follow up with your primary care doctor 7-10 days after discharge. 12. Contact [facility] with any questions, . Procedures: Right total knee arthroplasty Patient Condition at Discharge: Good Plan - Discharge Summary Discharge Rx Participant: No New Discharge Prescriptions: New oxyCODONE HCL/ACETAMINOPHEN [Percocet 7.5-325 mg] 1 tab PO Q6HR PRN #28 tab PRN Reason: Pain Rivaroxaban [Xarelto] 10 mg PO DAILY #12 tab polyethylene glycoL 3350 [Miralax] 17 gm PO DAILY PRN #21 packet PRN Reason: Constipation Sennosides/Docusate Sodium [Senna-S 8.6-50 mg Tablet] 2 each PO DAILY PRN #30 tablet PRN Reason: Constipation Discontinued HYDROcodone/APAP 5-325MG [[place] 5-325] 1 tab PO BID PRN PRN Reason: Pain No Action Sertraline [Zoloft] 100 mg PO QAM Metoprolol Succinate [Toprol XL] 50 mg PO QAM Levothyroxine Sodium [Synthroid] 50 mcg PO QAM Ibuprofen 800 mg PO Q8H PRN PRN Reason: Pain Albuterol Sulfate [Ventolin HFA] 1 puff INHALATION Q4H PRN PRN Reason: Shortness Of Breath Discharge Medication List Albuterol Sulfate [Ventolin HFA] 1 puff INHALATION Q4H PRN 02/23/24 [History] Ibuprofen 800 mg PO Q8H PRN 02/23/24 [History] Levothyroxine Sodium [Synthroid] 50 mcg PO QAM 02/23/24 [History] Metoprolol Succinate [Toprol XL] 50 mg PO QAM 02/23/24 [History] Sertraline [Zoloft] 100 mg PO QAM 02/23/24 [History] Rivaroxaban [Xarelto] 10 mg PO DAILY #12 tab 02/29/24 [Rx] Sennosides/Docusate Sodium [Senna-S 8.6-50 mg Tablet] 2 each PO DAILY PRN #30 tablet 02/29/24 [Rx] oxyCODONE HCL/ACETAMINOPHEN [Percocet 7.5-325 mg] 1 tab PO Q6HR PRN #28 tab 02/29/24 [Rx] polyethylene glycoL 3350 [Miralax] 17 gm PO DAILY PRN #21 packet 02/29/24 [Rx] Follow up Appointment(s)/Referral(s): Castro Stanford PAC [PHYSICIAN CONDOMINIUM MANAGER] - 2 Weeks [facility],Equipment [NON-STAFF] - As Needed (*Please call [facility] once home to arrange delivery of the Continuous Passive Motion (CPM) machine. ) [facility] [place], [NON-STAFF] - As Needed Patient Instructions/Handouts: Knee Replacement (GEN) Activity/Diet/Wound Care/Special Instructions: Orthopedic Discharge Instructions: 1. Wound care and infection precautions, keep incision dry and covered while showering, no lotions, creams, moisturizers. No soaking, pools, hot tubs. Do not scrub over incision. 2. Weight-bear as tolerated with walker / cane until follow-up. 3. Ice and elevate when necessary. Do not exceed 20 minutes per hour with ice pack. 4. Utilize compression sleeve until seen at first follow up appointment. 5. Pain meds and anticoagulants per prescription. 6. Pain medication has potential to cause constipation. Increase oral fluid and fiber intake. Contact primary care provider if you have not had a bowel movement within 48 hours after discharge. 7. No anti-inflammatory medication until discussed at first post operative visit, this including Motrin, Aleve, Mobic, Diclofenac. 8. Follow up in office at 2 weeks postop with Dieter Tan PA-C / Castro Stanford PA-C 9. Follow up with your primary care doctor 7-10 days after discharge. 10. Contact [facility] with any questions, . Keep incision clean, dry, intact. While showering, cover fusion tape with Saran wrap. Keep fusion tape on until follow-up appointment in office in 2 weeks. Discharge Disposition: TRANSFER TO SNF/ECF
== END 2024-02-29 17:27 ==
LOC: OR 06:07 → 4SSUR 12:40 → OR 02-29 08:46 → 4SSUR 02-29 08:46
PROVIDERS: ADMIT Orthopaedic Surgery; ATTEND Orthopaedic Surgery
DX: M17.11 Unilateral primary osteoarthritis, right knee (principal); G47.30 Sleep apnea, unspecified; K21.9 Gastro-esophageal reflux disease without esophagitis; J45.909 Unspecified asthma, uncomplicated; I10 Essential (primary) hypertension; E66.9 Obesity, unspecified; Z68.43 Body mass index [BMI] 50.0-59.9, adult; Z79.899 Other long term (current) drug therapy; Z79.890 Hormone replacement therapy; Z88.8 Allergy status to other drugs, medicaments and biological substances
CPT/HCPCS: 27447; 64447; 94640 ×5; 97116; 97161; 97166; 64999; 64448; 85025 ×2; 73560; G0378; C1713 ×2; C1776; C1751; J2250; J1100; J0690 ×2; J2405; J2003; J3010; J2270 ×3; J1171 ×2; J2795; J2704; J2371

== ENCOUNTER 2024-04-11 13:50 | Emergency (ER) | payer MEDICAID, OTHER ==
[2024-04-11 14:09] VITALS: RESP 18
[2024-04-11 14:55] LABS: Basophils # (A) 0.1 k/uL (0-0.2); Basophils % (A) 1 %; Eosinophils # (A) 0.2 k/uL (0-0.7); Eosinophils % (A) 3 %; HGB 12.6 gm/dL (11.4-16.0); Hypochromasia Slight; Lymphocytes # (A) 1.2 k/uL (1.0-4.8); Lymphocytes % (A) 14 %; MCH 29.2 pg (25.0-35.0); MCHC 32.3 g/dL (31.0-37.0); MCV 90.5 fL (80.0-100.0); Mean Platelet Volume 8.2; Monocytes # (A) 0.3 k/uL (0-1.0); Monocytes % (A) 4 %; Neutrophils # (A) 6.3 k/uL (1.3-7.7); Neutrophils % (A) 78 %; Platelet Count 222 k/uL (150-450); RBC 4.31 m/uL (3.80-5.40); RDW 14.1 % (11.5-15.5); WBC 8.2 k/uL (3.8-10.6)
--- NOTE | 2024-04-11 15:06 | ED ---
Lower Extremity Injury HPI - General Chief Complaint: Extremity Injury, Lower Stated Complaint: knee pain Time Seen by Provider: 04/11/24 14:05 Source: patient, RN notes reviewed Mode of arrival: wheelchair Limitations: no limitations - History of Present Illness Initial Comments: This is a 54-year-old female presenting with right knee pain (10/27) x 2 days. Patient had TKR surgery on 02/26/2024 with gradual improvement afterwards, including 2 weeks of physical therapy. States pain started worsening yesterday with associated distal edema and paresthesia and foot. Endorses audible "popping" and worsening pain with weightbearing (01/27). Patient states she recently ran out of her hydrocodone and Percocet. Denies use of blood thinners or history of blood clots. Denies fever, chills, RLE color change, chest pain, dyspnea. MD Complaint: knee injury Onset/Timin -: days(s) Injury: Knee: Right Severity scale (1-10): 7 Improves With: immobilization Worsens With: weight bearing, movement, palpation Treatments Prior to Arrival: other (Hydrocodone, Percocet) - Related Data Home Medications Medication Instructions Recorded Confirmed Ibuprofen 800 mg PO Q8H PRN 02/23/24 02/26/24 Levothyroxine Sodium [Synthroid] 50 mcg PO QAM 02/23/24 02/26/24 Metoprolol Succinate [Toprol XL] 50 mg PO QAM 02/23/24 02/26/24 Sertraline [Zoloft] 100 mg PO QAM 02/23/24 02/26/24 Previous Rx's Medication Instructions Recorded Ipratropium-Albuterol Nebulize 3 ml INHALATION RT-QID each 02/29/24 [Duoneb 0.5 mg-3 mg/3 ml Soln] Rivaroxaban [Xarelto] 10 mg PO DAILY #12 tab 02/29/24 Sennosides-Docusate Sodium 2 each PO HS tab 02/29/24 [Senokot-S] Sennosides/Docusate Sodium 2 each PO DAILY PRN #30 tablet 02/29/24 [Senna-S 8.6-50 mg Tablet] hydrOXYzine pamoate [Vistaril] 25 mg PO Q6HR cap 02/29/24 oxyCODONE HCL/ACETAMINOPHEN 1 tab PO Q6HR PRN #28 tab 02/29/24 [Percocet 7.5-325 mg] polyethylene glycoL 3350 [Miralax] 17 gm PO DAILY PRN #21 packet 02/29/24 Ibuprofen [Motrin] 800 mg PO Q8H PRN #30 tab 04/11/24 Allergies Allergy/AdvReac Type Severity Reaction Status Date / Time methylprednisolone Allergy Unknown Verified 02/26/24 06:31 [From Medrol] Review of Systems ROS Statement: Those systems with pertinent positive or pertinent negative responses have been documented in the HPI. ROS Other: All systems not noted in ROS Statement are negative. Past Medical History Past Medical History: Asthma, GERD/Reflux, Hypertension, Osteoarthritis (OA), Skin Disorder, Thyroid Disorder Additional Past Medical History / Comment(s): Varicose veins. Slight Sleep Apnea, no device use. Eczema, has spot on back of head with dry skin. History of Any Multi-Drug Resistant Organisms: None Reported Past Surgical History: Bladder Surgery, Cholecystectomy, Hysterectomy, Orthopedic Surgery Additional Past Surgical History / Comment(s): Neck surgery with metal cage, bladder polyps removed, right knee surgery. Past Anesthesia/Blood Transfusion Reactions: No Reported Reaction Past Psychological History: Anxiety Smoking Status: Former smoker, Vaper Past Alcohol Use History: Rare Past Drug Use History: None Reported - Past Family History Father Family Medical History: Cancer Additional Family Medical History / Comment(s): Skin cancer. Brother(s) Family Medical History: Cancer Additional Family Medical History / Comment(s): Throat cancer. Mother Family Medical History: Deep Vein Thrombosis (DVT) General Exam Limitations: no limitations General appearance: alert, in no apparent distress Head exam: Present: atraumatic, normocephalic, normal inspection Eye exam: Present: normal appearance, PERRL, EOMI. Absent: scleral icterus, conjunctival injection, periorbital swelling ENT exam: Present: normal exam, mucous membranes moist Neck exam: Present: normal inspection. Absent: tenderness, meningismus, lymphadenopathy Respiratory exam: Present: normal lung sounds bilaterally. Absent: respiratory distress, wheezes, rales, rhonchi, stridor Cardiovascular Exam: Present: regular rate, normal rhythm, normal heart sounds. Absent: systolic murmur, diastolic murmur, rubs, gallop, clicks GI/Abdominal exam: Present: soft, normal bowel sounds. Absent: distended, tenderness, guarding, rebound, rigid Extremities exam: Present: tenderness (Positive diffuse right knee TTP, especially subpatellar and bilateral regions.), normal capillary refill, pedal edema (Pitting edema of RLE up to knee. Posterior tibialis pulse +1), joint swelling (Right subpatellar edema,), other (Surgical incision site appears to have healed well with no obvious indications of infection, discharge, overlying erythema. Negative distal RLE erythema). Absent: calf tenderness Back exam: Present: normal inspection Neurological exam: Present: alert, oriented X3, CN II-XII intact Psychiatric exam: Present: normal affect, normal mood Skin exam: Present: warm, dry, intact, normal color. Absent: rash Course Vital Signs 04/11/24 04/11/24 14:06 16:55 Temperature 98.5 F 98 F Pulse Rate 84 74 Respiratory 18 18 Rate Blood Pressure 141/85 129/79 O2 Sat by Pulse 98 100 Oximetry Medical Decision Making - Medical Decision Making Was pt. sent in by a medical professional or institution (, PA, CHILD SUPPORT INVESTIGATOR, urgent care, hospital, or group home...) When possible be specific @ -[No] Did you speak to anyone other than the patient for history (EMS, parent, family, police, friend...)? What history was obtained from this source @ -[No] Did you review nursing and triage notes (agree or disagree)? Why? @ -[I reviewed and agree with nursing and triage notes] Were old charts reviewed (outside hosp., previous admission, EMS record, old EKG, old radiological studies, urgent care reports/EKG's, group home records)? Report findings @ -[No old charts were reviewed] Differential Diagnosis (chest pain, altered mental status, abdominal pain women, abdominal pain men, vaginal bleeding, weakness, fever, dyspnea, syncope, headache, dizziness, GI bleed, back pain, seizure, CVA, palpatations, mental health, musculoskeletal)? @ -[not applicable] EKG interpreted by me (3pts min.). @ -Not done X-rays interpreted by me (1pt min.). @ -[None done] CT interpreted by me (1pt min.). @ -[None done] U/S interpreted by me (1pt. min.). @ -[None done] What testing was considered but not performed or refused? (CT, X-rays, U/S, labs)? Why? @ -[None] What meds were considered but not given or refused? Why? @ -[None] Did you discuss the management of the patient with other professionals (professionals i.e. , PA, CHILD SUPPORT INVESTIGATOR, lab, RT, psych nurse, clinical social work therapist, novelty maker, teacher, employee service officer, director of casework department)? Give summary @ -[No] Was smoking cessation discussed for >3mins.? @ -[No] Was critical care preformed (if so, how long)? @ -[No] Were there social determinants of health that impacted care today? How? (Homelessness, low income, unemployed, alcoholism, drug addiction, t ransportation, low edu. Level, literacy, decrease access to med. care, correction, rehab)? @ -[No] Was there de-escalation of care discussed even if they declined (Discuss DNR or withdrawal of care, Hospice)? DNR status @ -[No] What co-morbidities impacted this encounter? (DM, HTN, Smoking, COPD, CAD, Can cer, CVA, ARF, Chemo, Hep., AIDS, mental health diagnosis, sleep apnea, morbid obesity)? @ -[None] Was patient admitted / discharged? Hospital course, mention meds given and route, prescriptions, significant lab abnormalities, going to OR and other pertinent info. @ -[hospital course] Undiagnosed new problem with uncertain prognosis? @ -[No] Drug Therapy requiring intensive monitoring for toxicity (Heparin, Nitro, Insulin, Cardizem)? @ -[No] Were any procedures done? @ -[No] Diagnosis/symptom? @ -[default] Acute, or Chronic, or Acute on Chronic? @ -Acute Uncomplicated (without systemic symptoms) or Complicated (systemic symptoms)? @ -Uncomplicated Side effects of treatment? @ -[No] Exacerbation, Progression, or Severe Exacerbation? @ -[No] Poses a threat to life or bodily function? How? (Chest pain, [place], MT, pneumonia, PE, COPD, DKA, ARF, appy, cholecystitis, CVA, Diverticulitis, Homicidal, Suicidal, threat to staff... and all critical care pts) @ -[No] - Lab Data Result diagrams: 04/11/24 14:48 04/11/24 14:48 Lab Results 04/11/24 04/11/24 04/11/24 Range/Units 14:48 14:48 14:48 WBC 8.2 (3.8-10.6) k/uL RBC 4.31 (3.80-5.40) m/uL Hgb 12.6 (11.4-16.0) gm/dL Hct 39.0 (34.0-46.0) % MCV 90.5 (80.0-100.0) fL MCH 29.2 (25.0-35.0) pg MCHC 32.3 (31.0-37.0) g/dL RDW 14.1 (11.5-15.5) % Plt Count 222 (150-450) k/uL MPV 8.2 Neutrophils % 78 % Lymphocytes % 14 % Monocytes % 4 % Eosinophils % 3 % Basophils % 1 % Neutrophils # 6.3 (1.3-7.7) k/uL Lymphocytes # 1.2 (1.0-4.8) k/uL Monocytes # 0.3 (0-1.0) k/uL Eosinophils # 0.2 (0-0.7) k/uL Basophils # 0.1 (0-0.2) k/uL Hypochromasia Slight Sodium 141 (137-145) mmol/L Potassium 4.3 (3.5-5.1) mmol/L Chloride 106 (98-107) mmol/L Carbon Dioxide 29 (22-30) mmol/L Anion Gap 6 mmol/L BUN 17 (7-17) mg/dL Creatinine 0.80 (0.52-1.04) mg/dL Est GFR (CKD-EPI)AfAm >90 (>60 ml/min/1.73 sqM) Est GFR (CKD-EPI)NonAf 84 (>60 ml/min/1.73 sqM) Glucose 82 (74-99) mg/dL Plasma Lactic Acid Taco 1.9 (0.7-2.0) mmol/L Calcium 9.1 (8.4-10.2) mg/dL Total Bilirubin 0.3 (0.2-1.3) mg/dL AST 20 (14-36) U/L ALT 11 (4-34) U/L Alkaline Phosphatase 131 H (38-126) U/L Total Protein 6.8 (6.3-8.2) g/dL Albumin 4.1 (3.5-5.0) g/dL Disposition Clinical Impression: Joint effusion of knee Disposition: HOME SELF-CARE Condition: Good Instructions (If sedation given, give patient instructions): Swollen Knee Joint (ED) Prescriptions: Ibuprofen [Motrin] 800 mg PO Q8H PRN #30 tab PRN Reason: Pain Is patient prescribed a controlled substance at d/c from ED?: No Referrals: Enoch Corral MD [Primary Care Provider] - 1-2 days Time of Disposition: 16:58
--- NOTE | 2024-04-11 15:10 | XR ---
EXAMINATION TYPE: XR knee limited 2 views RT DATE OF EXAM: 04/11/2024 2:55 PM COMPARISON: 02/26/2024 CLINICAL INDICATION: Female, 54 years old with history of Worsening R knee pain following surgery las t month, , FINDINGS: There is anterior soft tissue swelling and suggestion of underlying small knee joint effusion. Change s of right total knee arthroplasty with short stem tibial tray component. No periprosthetic fracture or loosening is identified. IMPRESSION: Some residual anterior soft tissue swelling and suggestion of a small knee joint effusion. Otherwise, no evident complication of the right total knee arthroplasty with short stemmed tibial component. [facility], , 04/11/2024 3:07 PM
[2024-04-11] MEDS: HYDROmorphone 0.5 MG/0.5 ML SYRINGE IVP STA (15:20)
[2024-04-11] MEDS: KETOROLAC 15 MG/ML 1 ML VIAL IVP STA (15:21)
[2024-04-11 15:31] LABS: ALT 11 U/L (4-34); AST 20 U/L (14-36); African American GFR (CKD) >90 (>60 ml/min/1.73 sqM); Albumin 4.1 g/dL (3.5-5.0); Alkaline Phosphatase 131 U/L (38-126); Anion Gap 6 mmol/L; Blood Urea Nitrogen 17 mg/dL (7-17); Calcium 9.1 mg/dL (8.4-10.2); Carbon Dioxide 29 mmol/L (22-30); Chloride 106 mmol/L (98-107); Glucose 82 mg/dL (74-99); Non-African American GFR(CKD) 84 (>60 ml/min/1.73 sqM); Potassium 4.3 mmol/L (3.5-5.1); Sodium 141 mmol/L (137-145); Total Bilirubin 0.3 mg/dL (0.2-1.3); Total Protein 6.8 g/dL (6.3-8.2)
--- NOTE | 2024-04-11 15:39 | US ---
EXAMINATION TYPE: US venous doppler duplex LE RT DATE OF EXAM: 04/11/2024 3:21 PM COMPARISON: NONE CLINICAL INDICATION: Female, 54 years old with history of s/o RLE pain, edema; TKR in February; Right leg pain s/p right total knee, Pain TECHNIQUE: The lower extremity deep venous system is examined utilizing real time linear array sonog guerline with graded compression, color doppler sonography, and spectral doppler. SIDE PERFORMED: Right FINDINGS: VESSELS IMAGED: Common Femoral Vein Deep Femoral Vein Greater Saphenous Vein * Femoral Vein Popliteal Vein Small Saphenous Vein * Proximal Calf Veins (* superficial vessels) Right Leg: Negative for DVT, Color Doppler imaging shows patency of the vessels. Spectral waveforms are within normal limits. IMPRESSION: No ultrasound evidence for deep venous thrombosis. [facility], , 04/11/2024 3:37 PM
[2024-04-11] MEDS ORDERED: HYDROmorphone 0.5 MG/0.5 ML SYRINGE IM STA (15:47)
[2024-04-11] MEDS ORDERED: KETOROLAC 15 MG/ML 1 ML VIAL IM STA (15:47)
[2024-04-11 16:56] VITALS: BP 129/79; PULSE 74; TEMP 98
[2024-04-11] MEDS: ACET/COD 300 MG/30 MG STARTER PACK 6 TAB BTL PO STA (17:12)
== END 2024-04-11 17:22 | disposition home or self-care (01) ==
LOC: EC 13:50
DX: M25.461 Effusion, right knee (principal); F17.290 Nicotine dependence, other tobacco product, uncomplicated; Z88.8 Allergy status to other drugs, medicaments and biological substances
CPT/HCPCS: 99284 ×2; 96374 ×2; 96375 ×2; 36415; 80053; 83605; 85025; 73560; 93971; J1885; J1171